=== PATIENT | male | born 1980 | race African-American/Black ===

== ENCOUNTER 2018-10-05 10:11 | Emergency (ER) | payer MEDICAID, OTHER ==
[~2018-10-05] VITALS: Ht 177.8 cm; Wt 72.7 kg
--- NOTE | 2018-10-05 10:21 | NUR ---
Pt complains of left chest pain 5/10 that lasted from 4883-9348. pt is currently not expereincing CP upon arrival to the ED. pain did not radiate. pt recieved 324 ASA in ambulance. pt rest on gurney pain reported as 0/10.
--- NOTE | 2018-10-05 10:43 | NUR ---
BREAK RN: PATIENT RESTING COMFORTABLY. VSS AT THIS TIME NO NEEDS
--- NOTE | 2018-10-05 11:11 | NUR ---
BREAK RN: PATIENT STATES NO CP AT THIS TIME. PATIENT AOX4 VSS
[2018-10-05 11:30] LABS: BASOPHILS # (AUTO) 0.01 x10^3/uL (0-0.1); BASOPHILS % (AUTO) 0 % (0-1); EOSINOPHILS # (AUTO) 0.11 x10^3/uL (0-0.4); EOSINOPHILS % (AUTO) 2 % (1-7); LYMPHOCYTES % (AUTO) 42 % (22-44); MD NO; MEAN CORPUSCULAR HEMOGLOBIN 29.2 pg (27.5-34.5); MEAN CORPUSCULAR HGB CONC 33.7 g/dL (33.2-36.2); MEAN CORPUSCULAR VOLUME 86.8 fL (81-97); MEAN PLATELET VOLUME 8.9 fL (7.4-10.4); MONOCYTES % (AUTO) 7 % (2-9); NEUTROPHILS # (AUTO) 2.74 x10^3/uL (1.8-6.8); NEUTROPHILS % (AUTO) 48 % (42-75); PLATELET COUNT 256 x10^3/uL (130-400); RED BLOOD COUNT 5.75 x10^6/uL (4.38-5.82); RED CELL DISTRIBUTION WIDTH 14.3 % (9.4-14.8)
[2018-10-05 11:38] LABS: PROTHROMBIN TIME 10.5 Seconds (9.6-11.5)
[2018-10-05 12:01] VITALS: BP 152/83
[2018-10-05 12:05] LABS: ALBUMIN 4.6 g/dL (3.4-5.0); ANION GAP 7 mmol/L (5-15); CHLORIDE 105 mmol/L (98-107); CREATININE 0.96 mg/dL (0.7-1.3)
[2018-10-05 12:09] LABS: TROPONIN I < 0.015 ng/mL (0.000-0.045)
== END 2018-10-05 13:00 | disposition home or self-care (01) ==
LOC: ED 12:54
DX: R07.89 Other chest pain (principal)
CPT/HCPCS: 36415; 71045; 80048; 82040; 84484; 85025; 85610; 85730; 93005; 99284